=== PATIENT | female | born 1965 | race Hispanic/Latino ===

== ENCOUNTER 2017-03-28 07:49 | Emergency (ER) | payer SELFPAY ==
[~2017-03-28] VITALS: Ht 154.9 cm; Wt 70.0 kg
[~2017-03-28 07:49] MED LIST: AMOXICILLIN500 MG PO; LORTAB 7.5-3251 TAB PO; MOTRIN800 MG PO; NO HOME MEDS
[2017-03-28] MEDS ORDERED: B/P PILL PO (08:05)
[2017-03-28] MEDS ORDERED: TORADOL PO (09:22)
[2017-03-28] MEDS ORDERED: MEDDOSEPAK PO (09:22)
[2017-03-28 09:33] VITALS: BP 134/80
== END 2017-03-28 09:33 | disposition home or self-care (01) | DRG 556 ==
LOC: ED 07:49
DX: M25.562 Pain in left knee (principal); M79.652 Pain in left thigh; Z91.81 History of falling

== ENCOUNTER 2017-05-11 09:01 | Emergency (ER) | payer SELFPAY ==
[~2017-05-11] VITALS: Ht 154.9 cm; Wt 70.0 kg
[~2017-05-11 09:01] MED LIST changes: +B/P PILL PO; +MEDDOSEPAK PO; +TORADOL PO
[2017-05-11] MEDS ORDERED: NORCO1 TA1 PO (09:10)
[2017-05-11] MEDS ORDERED: EC-NAPROSYN500 MG PO (09:11)
[2017-05-11 10:15] VITALS: BP 166/84
== END 2017-05-11 10:15 | disposition home or self-care (01) | DRG 563 ==
LOC: ED 09:01
PROC: 2W3QX1Z Immobilization of Right Lower Leg using Splint (ICD-10-PCS; principal; 2017-05-11)
DX: S82.51XA Displaced fracture of medial malleolus of right tibia, initial encounter for closed fracture (principal); W19.XXXA Unspecified fall, initial encounter; Y93.89 Activity, other specified; Y92.009 Unspecified place in unspecified non-institutional (private) residence as the place of occurrence of the external cause

== ENCOUNTER 2019-11-20 08:54 | Emergency (ER) | payer MEDICAID ==
[~2019-11-20] VITALS: Ht 154.9 cm; Wt 78.0 kg
[~2019-11-20 08:54] MED LIST changes: +EC-NAPROSYN500 MG PO; +NORCO1 TA1 PO
[2019-11-20 09:30] LABS: HEMATOCRIT 42.1 % (37.0-47.0); IMMATURE GRANULOCYTES 0.2 % (0.0-5.0); MEAN CELL VOLUME 95.5 fL CALC (80.0-100.0); MEAN CORPUSCULAR HGB 29.5 pG CALC (26.0-32.0); MEAN CORPUSCULAR HGB CONC 30.9 g/dL CAL (32.0-36.0); NEUT# 4.59 thou/uL (2.00-7.15); RED BLOOD COUNT 4.41 mill/uL (4.20-5.60); RED CELL DISTRI WIDTH 13.1 % (11.5-15.5)
[2019-11-20 09:47] LABS: ALBUMIN 3.5 g/dL (3.2-5.0); ALKALINE PHOSPHATASE 127 u/l (38-126); ANION GAP 9 (6-22 (CALC)); BILIRUBIN, TOTAL 0.4 mg/dL (0.0-1.4); BUN 13 mg/dL (7-17); BUN/CREATININE RATIO 26 (12-20 (CALC)); CARBON DIOXIDE 31 mmol/l (22-30); CHLORIDE 104 mmol/l (95-108); CREATININE 0.5 mg/dL (0.5-1.0); GFR > 60 ML/MIN (>=60 (CALC)); GFR FOR AFR.AMER. > 60 ML/MIN (>=60 (CALC)); POTASSIUM 3.9 mmol/l (3.5-5.1); SGOT/AST 31 u/l (14-36); SODIUM 140 mmol/l (137-146); TOTAL PROTEIN 6.7 g/dL (6.3-8.2)
[2019-11-20 10:20] VITALS: BP 152/84
[2019-11-21] MEDS ORDERED: METHOCARBAMOL500 MG PO (10:10)
[2019-11-21] MEDS ORDERED: PREDNISONE1 MG PO (10:10)
[2019-11-21] MEDS ORDERED: OMEPRAZOLE20 MG PO (10:11)
[2019-11-21] MEDS ORDERED: LISINOPRIL10 M1 PO (10:11)
[2019-11-21] MEDS ORDERED: MOBIC7.5 M1 PO (10:11)
== END 2019-11-20 10:32 | disposition home or self-care (01) ==
LOC: ED 08:54
PROVIDERS: Family Medicine
DX: U07.1 COVID-19 (principal); I10 Essential (primary) hypertension

== ENCOUNTER 2019-11-21 06:23 | Observation (INO) | payer MEDICAID ==
[~2019-11-21] VITALS: Ht 157.5 cm; Wt 73.0 kg
--- NOTE | 2019-11-21 06:25 | NUR ---
BY WC TO ROOM
[2019-11-21 07:01] LABS: HEMATOCRIT 41.9 % (37.0-47.0); IMMATURE GRANULOCYTES 0.3 % (0.0-5.0); MEAN CORPUSCULAR HGB 29.5 pG CALC (26.0-32.0); NEUT# 7.98 thou/uL (2.00-7.15); RED BLOOD COUNT 4.41 mill/uL (4.20-5.60); RED CELL DISTRI WIDTH 13.1 % (11.5-15.5)
--- NOTE | 2019-11-21 07:01 | NUR ---
REPORT TO COLLEEN JI
--- NOTE | 2019-11-21 07:03 | NUR ---
PT RESTING WITH HOB ELEVATED, RESPIRATIONS EVEN AND UNLABORED O2@2LPM VIA NC SAT 98%. SKIN PWD. UPDATED ON POC AND WATI TIME.
[2019-11-21 07:20] LABS: ALBUMIN 3.7 g/dL (3.2-5.0); ALKALINE PHOSPHATASE 139 u/l (38-126); ANION GAP 8 (6-22 (CALC)); BILIRUBIN, TOTAL 0.4 mg/dL (0.0-1.4); BUN 15 mg/dL (7-17); BUN/CREATININE RATIO 32 (12-20 (CALC)); CARBON DIOXIDE 30 mmol/l (22-30); CHLORIDE 106 mmol/l (95-108); CREATININE 0.5 mg/dL (0.5-1.0); D-DIMER 0.26 mg/L (0.19-0.60); GFR > 60 ML/MIN (>=60 (CALC)); GFR FOR AFR.AMER. > 60 ML/MIN (>=60 (CALC)); LIPASE 56 u/l (23-300); POTASSIUM 3.9 mmol/l (3.5-5.1); SGOT/AST 32 u/l (14-36); SODIUM 140 mmol/l (137-146); TOTAL PROTEIN 7.4 g/dL (6.3-8.2)
[2019-11-21 07:23] LABS: PROTHROMBIN TIME 9.7 SECONDS (9.0-12.5)
[2019-11-21 08:06] LABS: C-REACTIVE PROTEIN 4.5 mg/dL (0-0.9)
[2019-11-21 08:18] LABS: URINE BILIRUBIN - DIPSTICK NEGATIVE (NEGATIVE); URINE BLOOD DIPSTICK NEGATIVE (NEGATIVE); URINE COLOR YELLOW; URINE GLUCOSE - DIPSTICK NEGATIVE (NEGATIVE); URINE KETONE NEGATIVE (NEGATIVE); URINE LEUK ESTERASE NEGATIVE (NEGATIVE); URINE NITRITE - DIPSTICK NEGATIVE (Negative); URINE PH 7.5 (4.5-8.0); URINE PROTEIN - DIPSTICK TRACE mg/dL (NEG-TRACE); URINE SPECIFIC GRAVITY 1.015
--- NOTE | 2019-11-21 08:25 | NUR ---
PT RESTING SUPINE WITH HOB ELEVATED. O2@2LPM VIA NC. PT C/O 10/13 FRONTAL HEADACHE.
--- NOTE | 2019-11-21 09:07 | NUR ---
PT RESTING IN NO DISTRESS, STATES HEADACHE HAS IMPROVED BUT IS NOT RESOLVED.O2 OFF FOR TRIAL PER REQUEST OF EDP. PT SATURATION 90% ON RA. O2 REAPPLIED AT 2LPM. PT IN NO DISTRESS. UPDATED ON WAIT TIME.
--- NOTE | 2019-11-21 10:00 | NUR ---
RECIEVED REPORT FROM GLORIA
[2019-11-21] MEDS ORDERED: METHOCARBAMOL500 MG PO (10:10)
[2019-11-21] MEDS ORDERED: PREDNISONE1 MG PO (10:10)
[2019-11-21] MEDS ORDERED: OMEPRAZOLE20 MG PO (10:11)
[2019-11-21] MEDS ORDERED: MOBIC7.5 M1 PO (10:11)
[2019-11-21] MEDS ORDERED: LISINOPRIL10 M1 PO (10:11)
--- NOTE | 2019-11-21 10:12 | NUR ---
PT RESTING IN NO DISTRESS. HAS BEEN UPDATED BY EDP ON RESULTS AND POC/ PT AGREEABLE. SKIN PWD
--- NOTE | 2019-11-21 10:57 | NUR ---
GAVE REPORT TO ABIMAEL
--- NOTE | 2019-11-21 11:05 | NUR ---
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, PT WAS SEEN IN ER YESTERDAY 11/20/19 FOR THE SAME;PT DENIES ANY CURRENT PAIN OR DISCOMFORTS,PAIN SCALE AND REPORTING EDUCATED;RESPIRATIONS SHALLOW ON O2 @ 2L VIA NC, EXERTIONAL SOB NOTED;PT IS NOT HOME OXYGEN DEPENDENT;PT REPORTS WHITE/THICK PRODUCTIVE COUGH, NONE VISUALIZED BY THIS WRITTER;ABDOMEN SOFT ON PALPATION AND ACTIVE IN ALL 4 QUADRANTS,LAST BM 11/20/19;STRONG PEDAL PULSES;SKIN INTACT;TELE MONITORING IN PLACE;#20G TO RAC FLUSHED AND PATENT,SITE APPEARS HEALTHY;HOME MEDICATION OBTAINED IN PHARMACY BAG AND PLACED IN PT CLOSET;ALLERGY BAND APPLIED TO RIGHT WRIST;PT EDUCATED ON ROOM ASSIGNMENT AND COVID POSITIVE TEST RESULTS, PT VERBALIZES UNDERSTANDING;PT DENIES ANY ADDITIONAL NEEDS AT THIS TIME AND IS ENCOURAGED TO CALL FOR ASSISTANCE IF NEEDED;FALL PRECAUTIONS IN PLACE WITH BED IN THE LOWEST POSITION AND CALL LIGHT IN REACH;WILL CONTINUE TO MONITOR
--- NOTE | 2019-11-21 11:15 | NUR ---
PT TRANSPORTED TO [facility] SURG STABLE AND IN NO DISTRESS. CARE ASSUMED TO ABIMAEL Admission Note Report Given to: ABIMAEL Transported by: Wheelchair X Stretcher Transported with: X Nurse Transporter X Patent IV X O2 X It Security Analyst Location: ICU X [facility]
[2019-11-21 11:24] VITALS: BP 140/71
--- NOTE | 2019-11-21 13:10 | NUR ---
MIRIAN, ER BRANCH RENTAL MANAGER CALLED TO NOTIFIY WRITTER OF TELEMETRY ST ELEVATION;STIP SENT TO FLOOR AND REVIEWED BY YAW PETERSON;PT ASYMPTOMATIC AT THIS TIME;NO NEW ORDERS RECEIVED;WILL CONTINUE TO MONITOR
--- NOTE | 2019-11-21 13:53 | NUR ---
PT RESTING IN SEMI FOWLERS POSITION;RESPIRATIONS EVEN AND UNLABORED ON O2 @ 2L VIA NC;PT DENIES ANY CURRENT PAIN OR NEEDS;TELE MONITORING IN P;ROCIO;IV SITE PATENT;PT ENCOURAGED TO CALL FOR ASSISTANCE IF NEEDED;FALL PRECAUTIONS IN PLACE WITH CALL LIGHT IN REACH;WILL CONTINUE TO MONITOR
[2019-11-21 14:55] VITALS: BP 154/88
--- NOTE | 2019-11-21 17:00 | NUR ---
PT RESTING IN SEMI FOWLERS POSITION;RESPIRATIONS EVEN AND UNLABORED,SHALLOW ON O2 @ 2L VIA NC;PT DENIES ANY CURRENT PAIN OR NEEDS;TELE MONITORING IN PLACE;IV SITE PATENT;PT DENIES ANY ADDITIONAL NEEDS AND IS ENCOURAGED TO CALL FOR ASSISTANCE IF NEEDED;FALL PRECAUTIONS REMAIN IN PLACE WITH CALL LIGHT IN REACH;WILL CONTINUE TO MONITOR
[2019-11-21 19:00] VITALS: BP 140/87
--- NOTE | 2019-11-21 20:32 | NUR ---
PT RESTING IN BED, NO SIGNS OF DISTRESS NOTED, RESP EVEN AND UNLABORED. PT ALERT AND ORIENTED X3, PT C/O NAUSEA MEDICATED WITH ZOFRAN. DISCUSSED POC, PT ON 02 2L NC, ASSISTED PT TO BSC, TOLERATED WELL. ASSESSMENT COMPLETED,CALL LIGHT IN REACH,CONTINUE TO MONITOR.
[2019-11-22] VITALS: BP 153/90
--- NOTE | 2019-11-22 00:29 | NUR ---
PT RESTING IN BED, REQUESTING SLEEP MEDICATION, MEDICATED PER MAY. CALL LIGHT IN REACH,CONTINUE TO MONITOR.
[2019-11-22 04:00] VITALS: BP 165/88
--- NOTE | 2019-11-22 04:29 | NUR ---
PT SITTING ON BEDSIDE COMMODE, PT DRY HEAVING. MEDICATED WITH ZOFRAN. ASSISTED PT BACK TO BED, CALL LIGHT IN REACH,CONTINUE TO MONITOR.
[2019-11-22 05:31] LABS: HEMATOCRIT 41.3 % (37.0-47.0); HEMOGLOBIN 12.6 g/dl (12.0-16.0); IMMATURE GRANULOCYTES 0.6 % (0.0-5.0); MEAN CELL VOLUME 94.7 fL CALC (80.0-100.0); MEAN CORPUSCULAR HGB 28.9 pG CALC (26.0-32.0); MEAN CORPUSCULAR HGB CONC 30.5 g/dL CAL (32.0-36.0); NEUT# 11.27 thou/uL (2.00-7.15); RED BLOOD COUNT 4.36 mill/uL (4.20-5.60); RED CELL DISTRI WIDTH 12.8 % (11.5-15.5)
[2019-11-22 06:29] LABS: ALBUMIN 3.4 g/dL (3.2-5.0); ALKALINE PHOSPHATASE 140 u/l (38-126); ANION GAP 8 (6-22 (CALC)); BILIRUBIN, TOTAL 0.3 mg/dL (0.0-1.4); BUN 13 mg/dL (7-17); BUN/CREATININE RATIO 26 (12-20 (CALC)); CARBON DIOXIDE 31 mmol/l (22-30); CHLORIDE 104 mmol/l (95-108); CREATININE 0.5 mg/dL (0.5-1.0); GFR > 60 ML/MIN (>=60 (CALC)); GFR FOR AFR.AMER. > 60 ML/MIN (>=60 (CALC)); POTASSIUM 3.8 mmol/l (3.5-5.1); SGOT/AST 28 u/l (14-36); SODIUM 139 mmol/l (137-146); TOTAL PROTEIN 6.7 g/dL (6.3-8.2)
[2019-11-22 07:45] VITALS: BP 165/60
--- NOTE | 2019-11-22 07:45 | NUR ---
ASSESSMENT IS COMPLETED:IV SITE IS FREE FROM REDNESS OR EDEMA. HR IS REG,PULSES ARE STRONG X4, ABD IS SOFT WITH ACTIVE BS. BREATH SOUNDS ARE WHEEZING AND DIMINISHED. TELE MONITOR IN PLACE. CONTINUE TO OBSERVE AND MONITOR.
[2019-11-22 12:00] VITALS: BP 110/58
--- NOTE | 2019-11-22 12:30 | NUR ---
PT C/O IV SITE TEMDER IN THE LAST PART OF THE AZITHROMYACIN INFUSING. WHEN FLUSHED IT STOPPED BEING TEMDER.
--- NOTE | 2019-11-22 12:45 | NUR ---
PT REMAINS SITTING IN THE CHAIR AFTER HER SHOWER., NO DISTRESS NOTED. IV SITE IS FREE FROM REDNESS OR EDEMA.
--- NOTE | 2019-11-22 15:30 | NUR ---
PT IS SITTING IN THE CHAIR, NO DISTRESS NOTED.
--- NOTE | 2019-11-22 16:15 | NUR ---
PT IS RELAXING IN BED WITH NO DISTRESS NOTED. IV SITE IS FREE FROM REDNESS OR EDEMA.
[2019-11-22 18:30] VITALS: BP 105/71
--- NOTE | 2019-11-22 20:18 | NUR ---
PT RESTING IN BED, ALERT AND ORIENTED. RESPIRATIONS EVEN AND UNLABORED ON RA, LUNGS SOUND DIMINISHED. PEDAL PULSES ARE STRONG. PT DENIES ANY PAIN STATES "I FEEL ANXIOUS" ALLOWED FOR PT TO VOICE CONCERNS, SAFETY PRECAUTIONS IN PLACE. WILL CONTINUE TO MONITOR.
[2019-11-23] VITALS (14 sets, daily range): BP systolic 103–156; BP diastolic 60–88
--- NOTE | 2019-11-23 00:13 | NUR ---
PT RESTING IN BED, WITH EYES CLOSED. NO S/S OF DISTRESS AT THIS TIME. SAFETY PRECAUTIONS IN PLACE. WILL CONTINUE TO MONITOR.
--- NOTE | 2019-11-23 07:20 | NUR ---
PT LAYING IN BED. NO DISTRESS NOTED. O2 VIA NC IN PLACE. PT DENIES ANY NEEDS AT THIS TIME. CALL LIGHT IN REACH. CONTINUE TO MONITOR.
--- NOTE | 2019-11-23 09:02 | NUR ---
PT SITTING IN BED. C/O OF HER THROAT CLOSING. STATES SHE FEELS THAT HER THROAT SPASMS, AND CLOSES OFF HER AIRWAY. STATES THIS HAS NOT HAPPENED BEFORE. PT GOES THROUGH AN APNEIC EPISODE, HOLDING HER NECK. LUNGS DIMINISHED THROUGHOUT LUNG JEWELL. ASSESSMENT COMPLETED. DISCUSSED POC. CALL LIGHT IN REACH. CONTINUE TO MONITOR.
--- NOTE | 2019-11-23 10:00 | NUR ---
UPON INITIATING ADMINISTRATION OF REMDESIVIR PT GASPING FOR AIR, STATING "THROAT IS CLOSING I CANNOT BREATHE". RAPID RESPONSE CALLED. VIKASH CAMPBELL APRN, JENNY RT, Cyn BARRAGAN RN AT BEDSIDE. PT PLACED ON NON REBREATHER. PT INSTRUCTED TO FOCUS ON BREATHING. REMDESIVIR STOPPED PER MD ORDERS. VSS. REPEAT STUDIES TO BE DONE PER MD ORDERS.
[2019-11-23 12:09] LABS: ANION GAP 11 (6-22 (CALC)); BUN 13 mg/dL (7-17); BUN/CREATININE RATIO 29 (12-20 (CALC)); CARBON DIOXIDE 26 mmol/l (22-30); CHLORIDE 105 mmol/l (95-108); CREATININE 0.5 mg/dL (0.5-1.0); GFR > 60 ML/MIN (>=60 (CALC)); GFR FOR AFR.AMER. > 60 ML/MIN (>=60 (CALC)); SODIUM 139 mmol/l (137-146)
--- NOTE | 2019-11-23 14:35 | NUR ---
D/C INSTRUCTIONS GIVEN. PT VERBALIZED UNDERSTANDING. IV INTACT UPON REMOVAL. AWAITING RIDE.
--- NOTE | 2019-11-23 14:46 | NUR ---
PT LETHARGIC IN APPEARANCE. STATES SHE FEELS WORSE THAN YESTERDAY. STATES THROAT PAIN HAS "GONE DOWN A LITTLE". PT CHANGED FROM NON REBREATHER BACK TO NC @ 4L. CALL LIGHT IN REACH. CONTINUE TO MONITOR.
--- NOTE | 2019-11-23 16:38 | NUR ---
PT TAKEN DOWN TO CT VIA WC ACCOMPANIED BY DUSTIN BOWEN
--- NOTE | 2019-11-23 17:51 | NUR ---
PT PRESSED CALL LIGHT BUTTON. UPON ENTERING ROOM, PT GASPING FOR AIR HOLDING THROAT STATING THAT SHE CANNOT BREATHE. EDUCATED PT TO FOCUS ON BREATHING. PT STATES SHE IS UNABLE TO. SAT PT UP. SHALLOW RESP NOTED. DR TYLER NOTIFIED OF PT COMPLAINTS AND CT SCAN RESULTS. PER MD TRANSFER PT TO ICU TO BE MORE CLOSELY MONITORED.
--- NOTE | 2019-11-23 19:10 | NUR ---
REPORT FROM JING RN. PT NOTED SITTING UP IN BED WITH NURSE AT BEDSIDE AWAITING TRANSFER TO ICU. ALERT AND ORIENTED X4. PT APPEARS ANXIOUS, NO APPARENT RESPIRATORY DISTRESS NOTED. RESPIRATIONS SHALLOW. 02 @ 4L/M VIA NC, SATS 94%. ENCOURAGED RELAXATION AND DEEP BREATHING AT THIS TIME. TECHNICIAN PLANT AND MAINTENANCE IN PLACE. DISCUSSED POC AND PLAN TO TRANSFER, PT VERBALIZED UNDERSTANDING. PT DENIES ANY CURRENT WANTS OR NEEDS. CALL LIGHT WITHIN REACH. WILL CONTINUE TO MONITOR.
--- NOTE | 2019-11-23 19:20 | NUR ---
PT TRANSFERED VIA BED FROM MS 291 TO ICU BED 1 IN STABLE CONDITION.
--- NOTE | 2019-11-23 20:25 | NUR ---
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; typewriter aligner asked "may I help you"; pt does not say anything; again, typewriter aligner inquires "may I help you"; pt moans; typewriter aligner at door and pt noted looking through glass at this typewriter aligner with hands around neck; typewriter aligner at bedside; pt will not speak moans; typewriter aligner encouraged pt to speak/ say what's wrong; pt states "I feel like my throat is closing"; no apparent distress noted; o2 sat 93% with 4L nc; no oral/ post throuat swelling noted; deep breathing exercises explained; pt appeasrs to be less anxious with staff at bedside; pm meds explained; pt states "I can't sallow"; Florence Sylwia candy bar noted at bedside half eaten; pt voices no difficulty swallowing candy bar; pt took pm meds without any difficulty; pt reassured; call light within reach; will continue to monitor
--- NOTE | 2019-11-23 21:57 | NUR ---
pt resting in bed with eyes closed; chief underwriter present at bedside; easily aroused; offers no complaints; admits to feeling better after xanax; denies needs; bsc offered, pt declined; sleeping aid offered and pt declined; pt states "I'm alright"; o2 per nc; reassured; call light within reach; will continue to monitor closely;
--- NOTE | 2019-11-23 22:33 | NUR ---
O2 SATS DROPPED DOWN TO 75% ON 4L/M VIA NC WHILE SLEEPING. PT MOUTH BREATHING WITH SNORING NOTED. RESPIRATIONS REMAIN SHALLOW. NO APPARENT DISTRESS. PT WAKES EASILY TO NAME, ORIENTED X4 BUT DROWSY. O2 INCREASED TO 5L/M VIA NC AT THIS TIME. PT DENIES ANY DISCOMFORT. CALL LIGHT WITHIN REACH. WILL CONTINUE TO MONITOR.
--- NOTE | 2019-11-23 23:59 | NUR ---
PT RESTING IN BED WITH EYES CLOSED. NO APPARENT DISTRESS NOTED. RESPIRATIONS EVEN AND UNLABORED. 02 SAT 94% @ 5L/M VIA NC. VSS. CALL LIGHT WITHIN REACH. WILL CONTINUE TO MONITOR.
[2019-11-24] VITALS (8 sets, daily range): BP systolic 118–152; BP diastolic 71–86
--- NOTE | 2019-11-24 02:03 | NUR ---
ASSISTED PT UP TO [facility] – [place]. PT VOIDED WITHOUT DIFFICULTY AT THIS TIME. PT MOANING LOUDLY AT TIMES. PT STATES SHE FEELS LIKE HER BREATH IS BEING TAKEN AWAY WHEN THIS HAPPENS. O2 SATS 92% ON 5L/M VIA HIGHFLOW NC. PT ALSO NOTED TO BE DIAPHORETIC. AFEBRILE. ACCUCHECK OBTAINED AT THIS TIME. ENCOURAGED PT TO DEEP BREATH AND DISCUSSED RELAXATION TECHNIQUES. PT VERBALIZED AND DEMOSTRATED UNDERSTANDING. ASSISTED PT BACK INTO BED IN A PRONE POSITION. PT MEDICATED FOR HEADACHE UPON REQUEST. ALSO PROVIDED INHALER AND THROAT LOZENGE AT THIS TIME. PT DENIES ANY FURTHER WANTS OR NEEDS. CALL LIGHT WITHIN REACH. WILL CONTINUE TO MONITOR.
--- NOTE | 2019-11-24 04:00 | NUR ---
PT RESTING IN BED WITH EYES CLOSED. NO APPARENT DISTRESS NOTED. VSS. CALL LIGHT WITHIN REACH. WILL CONTINUE TO MONITOR.
[2019-11-24 04:58] LABS: HEMATOCRIT 37.6 % (37.0-47.0); HEMOGLOBIN 11.6 g/dl (12.0-16.0); IMMATURE GRANULOCYTES 1.8 % (0.0-5.0); MEAN CELL VOLUME 94.7 fL CALC (80.0-100.0); MEAN CORPUSCULAR HGB 29.2 pG CALC (26.0-32.0); MEAN CORPUSCULAR HGB CONC 30.9 g/dL CAL (32.0-36.0); NEUT# 17.7 thou/uL (2.00-7.15); RED BLOOD COUNT 3.97 mill/uL (4.20-5.60); RED CELL DISTRI WIDTH 13.2 % (11.5-15.5)
[2019-11-24 05:27] LABS: ALKALINE PHOSPHATASE 142 u/l (38-126); ANION GAP 9 (6-22 (CALC)); BILIRUBIN, TOTAL 0.3 mg/dL (0.0-1.4); BUN 13 mg/dL (7-17); BUN/CREATININE RATIO 33 (12-20 (CALC)); CARBON DIOXIDE 28 mmol/l (22-30); CHLORIDE 104 mmol/l (95-108); CREATININE 0.4 mg/dL (0.5-1.0); GFR > 60 ML/MIN (>=60 (CALC)); GFR FOR AFR.AMER. > 60 ML/MIN (>=60 (CALC)); SGOT/AST 36 u/l (14-36); SODIUM 138 mmol/l (137-146); TOTAL PROTEIN 6.2 g/dL (6.3-8.2)
--- NOTE | 2019-11-24 05:28 | NUR ---
PT C/O SMALL AMOUNTS OF INCONTINENCE NOTED WITH COUGH. WASH CLOTHES AND TOWELS PROVIDED FOR [employer]. CLEAN LINENS APPLIED TO BED. NO APPARENT DISTRESS NOTED. COUGHING WITH THICK CLEAR SPUTUM NOTED. O2 SATS 94% ON 5L/M VIA HIGH FLOW NC. FAN PROVIDED UPON REQUEST. AFEBRILE AT THIS TIME. PT DENIES ANY OTHER CURRENT WANTS OR NEEDS. CALL LIGHT WITHIN REACH. WILL CONTNUE TO MONITOR.
[2019-11-24 06:11] LABS: C-REACTIVE PROTEIN 28.7 mg/dL (0-0.9)
--- NOTE | 2019-11-24 10:02 | NUR ---
patient alert and oriented x 4, lungs diminished, oob to bsc, bath given. Patient tolerated well. Incentive spirometer given results <500 pt encourage to use ever hour. Pt stated that she is not in pain, but feels discomfort around her neck. Patient was able to assist with bath.
--- NOTE | 2019-11-24 10:31 | NUR ---
Dr Pelayo rounded on pt, consult ID, want to know should he transfer, or continue with redesivir, he stated if doctor doesn't respond, notify him and he peter start the transfer out
--- NOTE | 2019-11-24 11:11 | NUR ---
Spoke with charge nurse, she stated that Dr Fink dosen't take call on the weekend, notified Dr Santiago. Ativan 0.5mg given po for anxiety. Patient stated that family has been tested for COVID-19 but has not received the results.
--- NOTE | 2019-11-24 13:24 | NUR ---
O2SATS 88%, 5L/NC, PT STATED THAT SOMETIMES SHE FEELS THAT SHE CAN'T BREATHE, [facility] PT TO USE HER IS O2 SATS WENT BACK UP TO 97-98%. RT CAME AND DID ABG WILL CONTINUE TO MONITOR. RT CALLED DR BAGLEY
--- NOTE | 2019-11-24 13:47 | NUR ---
DR BAGLEY CALLED AND SPOKE WITH RT, SHE INFORMED HIM OF THE RESULTS OF ABG, AND THAT OXYGEN WAS INCREASED TO 9L,/HIGH FLOW N/C. hE GAVE ORDERS TO INITATE TRANSFER
--- NOTE | 2019-11-24 14:50 | NUR ---
BETO FROM [facility], CALLED FOR REPORT. ALSO NOTIFIED PATIENT AND SON OF POSSIBLE TRANSFER, BOTH VERB UNDERSTANDING
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
--- NOTE | 2019-11-24 18:07 | NUR ---
PATIENT TRANFERRED VIA [facility] STRET[facility], CALLED REPORT TO [phone], SPOKE WITH PATRIA. ALSO NOTIFIED THE RAY, MONIQUE, OF THE TRANSFER. PT LEFT WITH 9L/NC HIGH FLOW OXYGEN. sHE VERB UNDERSTANDING OF WHY SHE WAS BEING TRANSFERRED
== END 2019-11-24 18:00 | disposition short-term general hospital (02) ==
LOC: ED 06:23 → ED-I 09:50 → ED 10:06 → MS2 10:07 → ICU 11-23 18:00
PROVIDERS: Nurse Practitioner; ADMIT Internal Medicine; ATTEND Internal Medicine
DX: U07.1 COVID-19 (principal); J12.89 Other viral pneumonia; R09.02 Hypoxemia; R52 Pain, unspecified; R11.0 Nausea; J39.2 Other diseases of pharynx; I10 Essential (primary) hypertension; K21.9 Gastro-esophageal reflux disease without esophagitis
CPT/HCPCS: G0378; J1650; Q9967